=== PATIENT | female | born 1970 | race Native Hawaiian/Other Pacific Islander ===

== ENCOUNTER 2017-06-14 12:51 | Outpatient (CLI) | payer BC | END 2017-06-14 22:01 | disposition home or self-care (01) | LOC: US 12:51 | DX: R10.13 Epigastric pain (principal); R11.0 Nausea ==

== ENCOUNTER 2022-05-18 08:41 | Outpatient (CLI) | payer BC | END 2022-05-18 18:52 | disposition home or self-care (01) | LOC: CT 08:41 | PROVIDERS: ATTEND Nurse Practitioner Family | DX: K43.2 Incisional hernia without obstruction or gangrene (principal) | CPT/HCPCS: 36415; 82565; 84520; Q9963 ==

== ENCOUNTER 2022-06-05 09:20 | Outpatient (CLI) | payer BC | END 2022-06-05 19:51 | disposition home or self-care (01) | LOC: US 09:20 | PROVIDERS: ATTEND Nurse Practitioner Family | DX: N28.1 Cyst of kidney, acquired (principal) ==